=== PATIENT | male | born 1960 | race Caucasian/White ===

== ENCOUNTER 2022-08-07 22:58 | Emergency (ER) | payer MEDICARE, MEDICAID, SELFPAY ==
--- NOTE | ~2022-08-07 | CT_ITS ---
EXAMINATION: CT ABDOMEN AND PELVIS WITHOUT CONTRAST CLINICAL INFORMATION: Abdominal pain. COMPARISON: CT abdomen/pelvis 01/05/2012. TECHNIQUE: Multidetector volumetric imaging was performed from the superior aspect of the liver through the pubic symphysis. Sagittal and coronal reformatted images were obtained on the technologist's workstation. This CT examination was performed using dose optimization techniques as appropriate, variously including the following: *Automated exposure control *Adjustment of mA and/or kV according to patient size (this includes techniques or standardized protocols for targeted exams where dose is matched to indication/reason for exam; i.e. extremities or head) *Use of iterative reconstruction technique DLP: 663 mGy-cm FINDINGS: LUNG BASES: Multifocal nodularities and patchy airspace opacities with also bronchial wall thickening. LIVER, GALLBLADDER, AND BILIARY TREE: Hepatomegaly with decreased attenuation of the liver parenchyma suggesting hepatic steatosis. No discrete focal liver lesion is noted in this limited noncontrast examination. Layering hyperattenuating sludge versus bile in the gallbladder. No significant wall thickening nor pericholecystic inflammatory changes.. No biliary ductal dilatation. PANCREAS: Unremarkable. SPLEEN: Unremarkable. ADRENAL GLANDS: Unremarkable. KIDNEYS AND URETERS: A couple of Bosniak 1 water density cysts are noted in the left kidney. No nephrolithiasis or hydronephrosis. No perinephric fat stranding. BLADDER: Unremarkable. GASTROINTESTINAL TRACT: The stomach and the small bowel are nondilated. Normal appendix. Colonic diverticulosis. No pericolonic inflammatory changes or evidence of bowel obstruction. Fluid filled distended rectum which could be seen with diarrhea. ABDOMINAL WALL: Small fat-containing umbilical hernia. LYMPH NODES: No pathologically enlarged lymph nodes. VASCULAR: The infrarenal abdominal aorta measures 4.5 cm in diameter, which is increased from 3 cm on 01/05/2012. Diffuse atherosclerotic disease. PELVIC VISCERA: Prostatomegaly. OSSEOUS STRUCTURES: Degenerative changes of the spine. No acute or aggressive appearing osseous abnormalities. CT/CT abdomen pelvis wo IV con IMPRESSION: 1. Multifocal nodularities and patchy airspace opacities in the lung bases concerning for an atypical pneumonia. Recommend a short-term follow-up to ensure resolution. 2. Hepatomegaly and hepatic steatosis. 3. Colonic diverticulosis but no evidence of acute diverticulitis. 4. Fluid-filled distended rectum which could be seen with diarrhea. 5. Increased size of an infrarenal abdominal aortic aneurysm measuring up to 4.5, increased from 3 cm on 01/05/2012. Recommend vascular surgery consultation to determine further management. 6. Prostatomegaly.
--- NOTE | ~2022-08-07 | XR_ITS ---
EXAMINATION: XR CHEST CLINICAL INFORMATION: Cough, elevated WBC. COMPARISON: Chest radiograph 05/27/2019. TECHNIQUE: 2 views of the chest were obtained. FINDINGS: Normal appearance of the cardiomediastinal silhouette. New multifocal airspace opacities, more noticeable in the lateral left upper lobe. No pleural effusion. No pneumothorax. No acute osseous abnormalities. XR/XR chest 2V IMPRESSION: New multifocal airspace opacities concerning for an atypical infectious or inflammatory process. Recommend a follow-up examination after treatment to ensure adequate resolution.
[2022-08-07 23:02] VITALS: BP 80/43; PULSE 90; RESP 17; TEMP 37.3; O2SAT 95; BMI 33.0
[2022-08-07 23:20] LABS: Basophils Absolute Auto 0.1 X10*3/uL (0.0-0.2); Basophils Percent Auto 0.3 % (0-2); Eosinophils Absolute Auto 0.4 X10*3/uL (0.0-0.4); Eosinophils Percent Auto 1.4 % (0-4); Hematocrit 33.4 % (42.0-52.0); Hemoglobin 11.4 g/dl (14.0-18.0); Imm Gran Abs Auto 0.38 X10*3/uL (0.00-0.03); Imm Gran Pct Auto 1.5 % (0.0-0.4); Lymphocytes Absolute Auto 2.9 X10*3/uL (1.2-4.9); Lymphocytes Percent Auto 11.2 % (20-40); Mean Corpuscular HGB Conc 34.1 g/dl (31.0-36.0); Mean Platelet Volume 8.4 fL (9.4-12.4); Monocytes Percent Auto 7.8 % (2-11); Neutrophils Absolute Auto 20.4 x10*3/uL (2.0-8.3); Neutrophils Percent Auto 77.8 % (45-73); Platelet Count 560 X10*3/uL (160-400); Red Blood Count 3.93 X10*6/uL (4.60-5.80); Red Cell Distribution Width 13.5 % (11.0-16.0); SCAN SMEAR FLAG 1; White Blood Count 26.2 X10*3/uL (4.8-10.8)
[2022-08-07 23:22] LABS: MANUAL DIFF FLAG SCAN
[2022-08-07 23:39] LABS: B Type Natriuretic Peptide 30 pg/mL (<100)
[2022-08-07 23:41] LABS: SLIDE REVIEW VERIFIED
[2022-08-07 23:54] LABS: Alanine Aminotransferase 60 U/L (0-40); Albumin Level 3.9 g/dL (3.5-5.0); Alkaline Phosphatase 160 U/L (39-117); Anion Gap 23 (12-20); Aspartate Amino Transferase 23 U/L (5-37); Bilirubin Total 0.9 mg/dL (0.0-1.0); Blood Urea Nitrogen 74 mg/dL (9-16); Calcium 8.6 mg/dL (8.4-10.2); Carbon Dioxide 17 mmol/L (22-29); Chloride 101 mmol/L (96-108); Creatinine Clr Calc Pharmacy 36.4; Estimated Glomerular Filt Rate 28; Glucose Random 167 mg/dL (60-115); Lipase 32 U/L (8-78); Magnesium 2.5 mg/dL (1.6-2.6); Potassium 4.7 mmol/L (3.3-5.1); Sodium 136 mmol/L (135-145); Total Protein 7.7 g/dL (6.5-8.0)
[2022-08-07 23:57] LABS: Influenza A PCR NEGATIVE (Negative); Influenza B PCR NEGATIVE (Negative); Resp Syncy Virus RNA Qual PCR NEGATIVE (Negative); SARS COV2 PCR INHOUSE NEGATIVE (Negative)
[2022-08-08 00:20] VITALS: BP 88/42; PULSE 86; RESP 18; TEMP 36.7; O2SAT 96
--- NOTE | 2022-08-08 00:41 | ED_ITS ---
HPI - Abdominal Pain General Chief Complaint: Abdominal Pain Stated Complaint: Abd pain/Cough/Congested Time Seen by Provider: 08/07/22 23:54 Source: patient History of Present Illness HPI narrative: 62-year-old male with abdominal pain and a cough for several weeks. Patient states the abdominal pain is epigastric, nonradiating, and intermittent. Does seem to go away with [place], but this relief is temporary. The patient also states that he has had an intermittent cough for approximately the same duration. The cough is dry and nonproductive. Both symptoms are not worsening and not improving. MD elicited complaint: abdominal pain Pertinent past history: none Onset (ago): week(s) Pain Consistency: intermittent Severity: moderate Quality: fullness and dull Radiation: none Exacerbating factors: nothing Relieving factors: medication Associated symptoms: denies other symptoms Related Data Allergies Allergy/AdvReac Type Severity Reaction Status Date / Time doxycycline [Doxycycline] Allergy Unknown RASH Unverified 08/03/21 13:39 latex [Latex] Allergy Unknown RASH Unverified 08/03/21 13:39 Latex Gloves Allergy Unknown Uncoded 08/03/21 13:39 Review of Systems Constitutional: Denies chills, Denies fever(s) and Reports poor appetite Eyes: Reports no additional eye complaints Reports system reviewed and no additional complaints, except as documented Cardiovascular: Denies chest pain, Denies edema and Denies dyspnea Respiratory: Denies chest congestion, Reports cough and Denies dyspnea Gastrointestinal: Reports as per HPI Genitourinary: Reports no additional male genitourinary complaints and Denies difficulty urinating Musculoskeletal: Reports no additional musculoskeletal complaints Reports system reviewed and no additional complaints, except as documented and Denies Abnormal speech present [facility] Past Medical History Attestation statement: The following information was validated with the patient. [facility] Narrative: Nonsmoker nondrinker. Past medical history includes congestive heart failure Social History Social History Advance Directives: No Physical Exam ED Vital Signs: Vital Signs - 24 hr 08/07/22 23:02 08/08/22 00:20 Temperature 99.1 F 98.0 F Pulse Rate 90 86 Respiratory Rate 17 18 Blood Pressure 80/43 L 88/42 L Pulse Oximetry 95 96 Oxygen Delivery Method Room Air Room Air BMI result Body Mass Index 33.0 Patient's blood pressure noted to be significantly low, although the patient is asymptomatic Const General: cooperative, healthy appearing and acute distress mild Nutritional Appearance: average body habitus Orientation/consciousness: patient oriented x3 HENMT Head: Yes normal to inspection, Yes normocephalic and Yes atraumatic Ears: hearing grossly normal bilaterally and external ears normal General nose exam: Normal external nose present Face and sinus: Yes normal facial exam Mouth: Normal oral and palatal mucosa present Eyes Conjunctivae: conjunctivae normal Sclerae: sclerae normal Neck Neck: Yes normal visual inspection and Yes full ROM Resp Effort & Inspection: normal respiratory effort and able to speak in complete sentences Cardio Rate: regular rate Rhythm: regular rhythm GI Inspection: Yes normal to inspection Palpation (GI): nontender Percussion: Yes normal to percussion, No dullness to percussion and Yes tympanic to percussion General: Yes no CVA tenderness Back/Spine/Pelvis Back: no CVA tenderness Cervical Spine: normal cervical lordosis and cervical ROM normal Skin General skin exam: no rashes or lesions noted Neuro General: patient oriented x3 Cranial nerves: Yes CN's II-XII intact bilaterally Speech: No Abnormal speech present Extrem General: Yes normal to inspection and Yes full ROM Medications Administered Discontinued Medications Generic Name Dose Route Start Last Admin Trade Name Freq PRN Reason Stop Dose Admin Ceftriaxone Sodium 1 gm/ 50 mls @ 100 mls/hr 08/08/22 01:19 08/08/22 01:43 Sodium Chloride IV 08/08/22 01:48 100 mls/hr ONCE ONE Administration Lorazepam 2 mg 08/08/22 01:22 08/08/22 01:43 Lorazepam 1 Mg Tablet PO 08/08/22 01:23 2 mg ONCE ONE Administration MDM - Abdominal Pain MDM Narrative Medical decision making narrative: 62-year-old male with a past medical history of congestive heart failure presents to the emergency department today with a cough and question of a stomach infection. The patient was noted to be afebrile on arrival. The patient had a CT scan of the abdomen which did not show any significant abnormalities, but a chest x-ray did show bilateral pulmonary infiltrates, consistent with pneumonia. COVID test pending at this time. Laboratory studies reviewed below. The patient was given Rocephin and Zithromax after having blood cultures, and will be admitted to the hospital for additional management. Medical Records Attestation: I reviewed the patient's medical records. Lab Data Attestation: I reviewed the patient's lab results. Lab results narrative: WBC elevated at 26.2. Creatinine also elevated at 2.39 (unknown if this is new). Result diagrams: 08/07/22 23:15 08/07/22 23:15 Labs: Lab Results 08/07/22 08/07/22 08/07/22 Range/Units 23:15 23:15 23:15 WBC 26.2 H (4.8-10.8) X10*3/uL RBC 3.93 L (4.60-5.80) X10*6/uL Hgb 11.4 L (14.0-18.0) g/dl Hct 33.4 L (42.0-52.0) % MCV 85.0 (80.0-98.0) fL MCH 29.0 (27.0-33.0) pg MCHC 34.1 (31.0-36.0) g/dl RDW 13.5 (11.0-16.0) % Plt Count 560 H (160-400) X10*3/uL MPV 8.4 L (9.4-12.4) fL Immature Gran % (Auto) 1.5 H (0.0-0.4) % Neut % (Auto) 77.8 H (45-73) % Lymph % (Auto) 11.2 L (20-40) % Adams % (Auto) 7.8 (2-11) % Eos % (Auto) 1.4 (0-4) % Baso % (Auto) 0.3 (0-2) % Lymph # (Auto) 2.9 (1.2-4.9) X10*3/uL Adams # (Auto) 2.0 H (0.1-1.2) X10*3/uL Eos # (Auto) 0.4 (0.0-0.4) X10*3/uL Baso # (Auto) 0.1 (0.0-0.2) X10*3/uL Abs Immat Gran (auto) 0.38 H (0.00-0.03) X10*3/uL Absolute Neuts (auto) 20.4 H (2.0-8.3) x10*3/uL Absolute Nucleated RBC 0.000 (0.0-0.012) X10*3/uL Nucleated RBC % (auto) 0.0 (0.0-0.2) /100WBC Smear Tech's Comments VERIFIED Sodium 136 (135-145) mmol/L Potassium 4.7 (3.3-5.1) mmol/L Chloride 101 (96-108) mmol/L Carbon Dioxide 17 L (22-29) mmol/L Anion Gap 23 H (12-20) BUN 74 H (9-16) mg/dL Creatinine 2.39 H (0.5-1.4) mg/dL Estim Creat Clear Calc 36.4 Estimated GFR 28 Random Glucose 167 H (60-115) mg/dL Calcium 8.6 (8.4-10.2) mg/dL Magnesium 2.5 (1.6-2.6) mg/dL Total Bilirubin 0.9 (0.0-1.0) mg/dL AST 23 (5-37) U/L ALT 60 H (0-40) U/L Alkaline Phosphatase 160 H (39-117) U/L B-Natriuretic Peptide 30 (<100) pg/mL Total Protein 7.7 (6.5-8.0) g/dL Albumin 3.9 (3.5-5.0) g/dL Lipase 32 (8-78) U/L Influenza Type A (PCR) (Negative) Influenza Type B (PCR) (Negative) RSV RNA Qual (PCR) (Negative) SARS-CoV-2 RNA (RT-PCR) (Negative) 08/07/22 Range/Units 23:15 WBC (4.8-10.8) X10*3/uL RBC (4.60-5.80) X10*6/uL Hgb (14.0-18.0) g/dl Hct (42.0-52.0) % MCV (80.0-98.0) fL MCH (27.0-33.0) pg MCHC (31.0-36.0) g/dl RDW (11.0-16.0) % Plt Count (160-400) X10*3/uL MPV (9.4-12.4) fL Immature Gran % (Auto) (0.0-0.4) % Neut % (Auto) (45-73) % Lymph % (Auto) (20-40) % Adams % (Auto) (2-11) % Eos % (Auto) (0-4) % Baso % (Auto) (0-2) % Lymph # (Auto) (1.2-4.9) X10*3/uL Adams # (Auto) (0.1-1.2) X10*3/uL Eos # (Auto) (0.0-0.4) X10*3/uL Baso # (Auto) (0.0-0.2) X10*3/uL Abs Immat Gran (auto) (0.00-0.03) X10*3/uL Absolute Neuts (auto) (2.0-8.3) x10*3/uL Absolute Nucleated RBC (0.0-0.012) X10*3/uL Nucleated RBC % (auto) (0.0-0.2) /100WBC Smear Tech's Comments Sodium (135-145) mmol/L Potassium (3.3-5.1) mmol/L Chloride (96-108) mmol/L Carbon Dioxide (22-29) mmol/L Anion Gap (12-20) BUN (9-16) mg/dL Creatinine (0.5-1.4) mg/dL Estim Creat Clear Calc Estimated GFR Random Glucose (60-115) mg/dL Calcium (8.4-10.2) mg/dL Magnesium (1.6-2.6) mg/dL Total Bilirubin (0.0-1.0) mg/dL AST (5-37) U/L ALT (0-40) U/L Alkaline Phosphatase (39-117) U/L B-Natriuretic Peptide (<100) pg/mL Total Protein (6.5-8.0) g/dL Albumin (3.5-5.0) g/dL Lipase (8-78) U/L Influenza Type A (PCR) NEGATIVE (Negative) Influenza Type B (PCR) NEGATIVE (Negative) RSV RNA Qual (PCR) NEGATIVE (Negative) SARS-CoV-2 RNA (RT-PCR) NEGATIVE (Negative) Imaging Data Chest x-ray: Attestation: I personally reviewed and interpreted this imaging study as follows: My impression: Bilateral pneumonia Radiologist's impression: Same CT scan - abdomen: My impression: No acute findings on CT except for the previously seen infiltrates on chest x- ray Discharge Plan Discharge Clinical Impression: Pneumonia, Abdominal pain, Cough Patient Disposition: Admitted As Inpatient
[2022-08-08] MEDS: LORazepam 1 MG TABLET 2 MG PO (01:43)
[2022-08-08] MEDS: cefTRIAXone sodium 1 GM in 0.9 % Sodium Chloride 50 ML IV (01:43)
[2022-08-08] MEDS: Azithromycin 500 MG in 0.9 % Sodium Chloride 250 ML 125 MG IV (02:28)
--- NOTE | 2022-08-08 03:37 | PM.EVENT ---
Event Note Date of Service: 08/08/22 Event Note: Was asked to evaluate the patient for admission by Dr. Oswald. Patient here with cough with imaging concerning for an infiltrate. Patient stated he would not like to be admitted and wants to leave against medical advice. States he understands the risk of leaving including worsening of his pneumonia, worsening of his kidney function and . Counselled regarding medications for his congestive heart failure and antibiotics for pneumonia. Talked to Dr. Dang regarding patient's wishes of leaving against medical advice. Defer outpatient Abx and AMA paperwork to Dr Dang. Recommend repeat blood work in 2-3 days
[2022-08-08 03:45] VITALS: BP 101/53; PULSE 93; RESP 13; TEMP 36.6; O2SAT 95
--- NOTE | 2022-08-08 04:13 | PC.NURSE ---
Pt leaving AMA. Discharge instruction reviewed with pt. Pt verbalizes understanding and signed AMA forms.
[2022-08-08] MEDS: Azithromycin 250 MG TABLET PO (04:23)
== END 2022-08-08 04:49 | disposition left against medical advice (07) ==
PROVIDERS: Emergency Provider Emergency Medicine; PCP Physician Assistant
DX: J18.9 Pneumonia, unspecified organism (principal); R10.9 Unspecified abdominal pain; Z20.822 Contact with and (suspected) exposure to COVID-19
CPT/HCPCS: 0241U; 36415; 71046; 74176; 80053; 83690; 83735; 83880; 85025; 87040; 92950; 96365; 96367; 99284; J0456; J0696

== ENCOUNTER 2022-08-08 17:58 | Emergency (ER) | payer MEDICARE, MEDICAID, SELFPAY ==
--- NOTE | 2022-08-08 18:06 | ED.GENADULT ---
HPI - General Adult General Chief complaint: Dyspnea Stated complaint: asthma, heart failure Related Data Home Medications Medication Instructions Recorded Confirmed carvedilol 25 mg tablet 1 tab PO BID 08/08/22 sacubitril 97 mg-valsartan 103 mg 1 tab PO BID 08/08/22 tablet (Entresto) spironolactone 25 mg tablet 1 tab PO DAILY 08/08/22 Previous Rx's Medication Instructions Recorded levofloxacin 750 mg tablet 750 mg PO DAILY 7 days #7 tabs 08/08/22 Allergies Allergy/AdvReac Type Severity Reaction Status Date / Time doxycycline [Doxycycline] Allergy Unknown RASH Unverified 08/03/21 13:39 latex [Latex] Allergy Unknown RASH Unverified 08/03/21 13:39 Latex Gloves Allergy Unknown Uncoded 08/03/21 13:39 Course Course Course Narrative: Triage: -c/o [place] , sob -sob started yesterday, was here, pt left becasue needed to take her daughter home -yesterday DR. Quezada attempted to admit pt , dx Pneumonia, taking levofloxacin -no CP -PE: well appearing, no SOB , O2 95% -F/u labs Discharge Plan Discharge Prescriptions: No Action levofloxacin 750 mg tablet 750 mg PO DAILY 7 Days Qty: 7 0RF carvedilol 25 mg tablet 1 tab PO BID spironolactone 25 mg tablet 1 tab PO DAILY Entresto 97-103 mg tablet 1 tab PO BID
[2022-08-08 18:07] VITALS: BP 101/55; PULSE 97; RESP 18; TEMP 36.6; O2SAT 92; BMI 30.2
== END 2022-08-08 22:01 | disposition left against medical advice (07) ==
PROVIDERS: Emergency Provider Emergency Medicine
DX: J18.9 Pneumonia, unspecified organism (principal); R06.02 Shortness of breath; J45.909 Unspecified asthma, uncomplicated
CPT/HCPCS: 0241U; 36415; 71046; 74176; 80053; 83690; 83735; 83880; 85025; 87040; 92950; 96365; 96367; 99281; 99284; J0456; J0696

== ENCOUNTER 2022-08-09 12:39 | Emergency (ER) | payer MEDICARE, MEDICAID, SELFPAY | END 2022-08-09 16:36 | disposition left against medical advice (07) | PROVIDERS: Emergency Provider Emergency Medicine; PCP Physician Assistant | DX: J18.9 Pneumonia, unspecified organism (principal) ==

== ENCOUNTER 2022-08-09 21:00 | Inpatient (IN) | payer MEDICARE, MEDICAID, SELFPAY ==
--- NOTE | 2022-08-09 | ECG_ITS ---
Test Reason : GENERAL MEDICAL Blood Pressure : / mmHG Vent. Rate : 087 BPM Atrial Rate : 087 BPM P-R Int : 166 ms QRS Dur : 174 ms QT Int : 402 ms P-R-T Axes : 053 -29 095 degrees QTc Int : 483 ms Normal sinus rhythm Left bundle branch block Abnormal ECG When compared with ECG of 27-MAY-2019 14:28, Left bundle branch block is now Present Minimal criteria for Septal infarct are no longer Present Referred By: Generic ED Physician Electronically Signed By:MALCOLM SOSA MD
--- NOTE | ~2022-08-09 | CT_ITS ---
EXAMINATION: CT CHEST WITHOUT CONTRAST CLINICAL INFORMATION: Bilateral pneumonia COMPARISON: Chest radiograph yesterday TECHNIQUE: Multidetector volumetric CT imaging of the chest was done. Axial MIP volume rendering provided. Sagittal and coronal reformatted images were obtained. This CT examination was performed using dose optimization techniques as appropriate, variously including the following: *Automated exposure control *Adjustment of mA and/or kV according to patient size (this includes techniques or standardized protocols for targeted exams where dose is matched to indication/reason for exam; i.e. extremities or head) *Use of iterative reconstruction technique DLP: 361 mGy-cm FINDINGS: LUNGS: Multifocal areas of pneumonia are seen. There is dense consolidation in the peripheral left upper lobe abutting the major fissure with some areas of pneumatocele formation within the infiltrate. Other areas of peribronchial groundglass inflammatory changes are seen throughout all other lobes some of which have [id number]-type densities. For example see right upper lobe (5:241), right lower lobe (5:379), left upper lobe (5:209) and lingula (5:389) MEDIASTINUM: Multiple prominent mediastinal lymph nodes are seen the largest in the AP window measuring 1.2 cm in short axis dimension, all probably reactive secondary to the multifocal CORONARY ARTERY CALCIFICATION: Present PLEURA: There is no pleural effusion. No pleural mass or thickening. AXILLA: No lymphadenopathy. UPPER ABDOMEN: Hepatic steatosis is present OSSEOUS STRUCTURES: Some minimal degenerative changes are present in the spine. There is a sclerotic lesion present in the superoposterior endplate of T6 unchanged from 2018. CT/CT chest wo IV con IMPRESSION: 1. Multifocal pneumonia as described above. 2. Incidental note made of hepatic steatosis and a stable sclerotic lesion in T6. Fleischner guidelines were followed.
[2022-08-09 21:18] VITALS: BP 88/52; PULSE 94; RESP 18; O2SAT 94; BMI 29.9
[2022-08-09 21:31] VITALS: TEMP 36.8
--- NOTE | 2022-08-09 21:43 | ED_ITS ---
HPI - General Adult General Chief complaint: General Medical Stated complaint: Weakness/Dizziness Time Seen by Provider: 08/09/22 21:42 Source: patient and old records reviewed Mode of arrival: ambulatory Limitations: no limitations History of Present Illness HPI narrative: 62-year-old male with history of cardiomyopathy/cardiomegaly on Entresto, carvedilol and spironolactone, AAA who presents to the ER for evaluation of weakness and dizziness. He was recently seen here yesterday for abdominal pain and cough. X-ray showed bilateral pulmonary infiltrates consistent with pneumonia. He had a white count of 26.2K and JAYLEEN. Admission was recommended but he ended up leaving AMA. He was sent home with Levaquin prescription. Patient comes back to the ER with ongoing cough, shortness of breath and not feeling well. He states he feels weak and dizzy. He has had nausea and decreased p.o. intake. He feels dehydrated. He denies any chest pain. He reports a productive cough of green, thick phlegm. He states he started feeling unwell about 3 weeks ago when he was traveling to [place]. He is not vaccinated for COVID or the flu. No one else at home is ill. MD complaint: weakness, dizziness Onset (ago): week(s) (3) Location: head and chest Radiation: non-radiation Severity: moderate Quality: aching Pain Consistency: constant Relieving factors: rest Exacerbating factors: movement Associated symptoms: cough, headaches, loss of appetite, malaise, n ausea/vomiting, shortness of breath and weakness Treatments prior to arrival: none Related Data Home Medications Medication Instructions Recorded Confirmed carvedilol 25 mg tablet 1 tab PO BID 08/08/22 sacubitril 97 mg-valsartan 103 mg 1 tab PO BID 08/08/22 tablet (Entresto) spironolactone 25 mg tablet 1 tab PO DAILY 08/08/22 Previous Rx's Medication Instructions Recorded levofloxacin 750 mg tablet 750 mg PO DAILY 7 days #7 tabs 08/08/22 Allergies Allergy/AdvReac Type Severity Reaction Status Date / Time doxycycline [Doxycycline] Allergy Unknown RASH Unverified 08/03/21 13:39 latex [Latex] Allergy Unknown RASH Unverified 08/03/21 13:39 Latex Gloves Allergy Unknown Uncoded 08/03/21 13:39 Review of Systems Review of Systems: Constitutional: No Fever, No Chills ENT/Mouth: No sore throat, No Rhinorrhea, No Swallowing Difficulty Eyes: No Eye Pain, No Swelling, No Redness Cardiovascular: No Chest Pain,+ SOB, No Orthopnea, No Edema Respiratory: + Cough, +Sputum, No Wheezing, + dyspnea Gastrointestinal: No Nausea, No Vomiting, No Diarrhea, No abdominal Pain, No Hematochezia, No Melena Genitourinary: No Dysuria, No Urinary Frequency, No Hematuria Musculoskeletal: No joint pain, + Myalgias Skin: No Skin Lesions, No rash Neuro: + Weakness, No Numbness, +Dizziness, + Headache Psych: + Anxiety/Panic, No Depression Heme/Lymph: No Bruising, No Lymphadenopathy Endocrine: No Polyuria, No Polydipsia PMFSH Social History Social History Advance Directives: No Advance Directives Information Provided: No Physical Exam ED Vital Signs: Vital Signs - 24 hr 08/09/22 21:18 08/09/22 21:31 08/09/22 23:43 Temperature 98.3 F 100.0 F Pulse Rate 94 87 Respiratory Rate 18 20 Blood Pressure 88/52 L 97/55 L Pulse Oximetry 94 97 Oxygen Delivery Method Room Air Room Air BMI result Body Mass Index 29.9 Appearance: Alert. Oriented X3. No acute distress. Eyes: Pupils equal, round and reactive to light. ENT: Pharynx normal. Neck: Normal inspection. Neck supple. CVS: Normal heart rate and rhythm. Pulses normal. Respiratory: No respiratory distress. Breath sounds decreased throughout, no appreciated rales, rhonchi or wheezes. Abdomen: Soft and nontender. +BS x4 no palpable mass. Skin: Skin warm and dry. Normal skin color. Normal skin turgor. No rashes. Extremities: No lower extremity edema. Lower extremities are warm and well perfused. Neuro: Oriented X 3. No motor deficit. No sensory deficit. Course Course Course Narrative: 62-year-old male with a history of CHF, cardiomyopathy unknown ejection fraction who presents to the ER for evaluation not feeling well including weakness, dizziness, shortness of breath and productive cough. Diagnosed with pneumonia and JAYLEEN yesterday, left AMA with prescription for Levaquin. Patient arrives to the ER with soft blood pressure, 88/51. No fever. SpO2 94% on room air. He is able to speaking complete sentences and is in no respiratory distress. Will repeat labs and get dry CT of his chest to further evaluate his bilateral pneumonia. X-ray was reviewed, there appears to be a dense left upper lobe. CT will help differentiate this. Will start treatment for community-acquired pneumonia with azithromycin and Rocephin. Will gently hydrate. He does not appear to be in acute CHF. His BNP yesterday was normal. He has no peripheral edema or evidence of volume overload. JAYLEEN most likely prerenal due to dehydration and acute illness. Cardiac records from [facility] pending. Reevaluation(s) Reevaluation #1: Cardiac records from [facility] have been reviewed. Left heart catheterization and right heart catheterization in 2018 showed nonobstructive CAD, normal right and left-sided filling pressures, normal pulmonary artery pressures. Echo in 09/2018 showed EF of 10-15%, unknown etiology. He had improvement in his ejection fraction on cardiac MRI 12/2018, EF 26% with severely reduced global LV function, moderately dilated LV. February/2021 he had normalization and full recovery of his cardiac function with LVEF 55-65%, normal RV systolic function. Reevaluation #2: Patient is SIRS positive with HR >90, WBC 25K and documented PNA --> sepsis criteria has been met, but not severe sepsis. Lactic acid is normal. Initial BP 88/50 but repeat is 107/55 while getting 1st liter IVF. Will plan to admit for IV abx, IVF. He has not had documented to low blood pressures, and his lactic acid is 1.0. Will hold off on the 30 cc/kilos sepsis bolus for now. BP improving with 1 L of fluids, reassess need for additional IVF resuscitation. Reevaluation #3: BP 97/55 with MAP 69. 2nd liter ordered. Hospitalist to admit. Medications Administered Generic Name Dose Route Start Last Admin Trade Name Freq PRN Reason Stop Dose Admin Sodium Chloride 1,000 mls @ 999 mls/hr 08/10/22 00:15 08/10/22 00:36 Ns IVCONT 08/10/22 01:15 999 mls/hr .Q1H1M MILLA Administration Discontinued Medications Generic Name Dose Route Start Last Admin Trade Name Freq PRN Reason Stop Dose Admin Ceftriaxone Sodium 1 gm/ 50 mls @ 100 mls/hr 08/09/22 21:58 08/10/22 00:07 Sodium Chloride IV 08/09/22 22:27 Infused ONCE ONE Infusion Azithromycin 500 mg/ Sodium 250 mls @ 125 mls/hr 08/09/22 21:58 08/09/22 23:36 Chloride IV 08/09/22 23:57 125 mls/hr ONCE ONE Administration Sodium Chloride 1,000 mls @ 999 mls/hr 08/09/22 22:00 08/10/22 00:08 Ns IVCONT 08/09/22 23:00 Infused .Q1H1M MILLA Infusion Medical Decision Making Lab Data Result diagrams: 08/09/22 22:10 08/09/22 22:10 Labs: Lab Results 08/09/22 08/09/22 08/09/22 Range/Units 22:10 22:10 22:10 WBC 25.5 H (4.8-10.8) X10*3/uL RBC 3.89 L (4.60-5.80) X10*6/uL Hgb 11.1 L (14.0-18.0) g/dl Hct 33.5 L (42.0-52.0) % MCV 86.1 (80.0-98.0) fL MCH 28.5 (27.0-33.0) pg MCHC 33.1 (31.0-36.0) g/dl RDW 13.7 (11.0-16.0) % Plt Count 618 H (160-400) X10*3/uL MPV 8.4 L (9.4-12.4) fL Immature Gran % (Auto) 1.0 H (0.0-0.4) % Neut % (Auto) 79.8 H (45-73) % Lymph % (Auto) 10.6 L (20-40) % [place] % (Auto) 7.0 (2-11) % Eos % (Auto) 1.3 (0-4) % Baso % (Auto) 0.3 (0-2) % Lymph # (Auto) 2.7 (1.2-4.9) X10*3/uL [place] # (Auto) 1.8 H (0.1-1.2) X10*3/uL Eos # (Auto) 0.3 (0.0-0.4) X10*3/uL Baso # (Auto) 0.1 (0.0-0.2) X10*3/uL Abs Immat Gran (auto) 0.26 H (0.00-0.03) X10*3/uL Absolute Neuts (auto) 20.3 H (2.0-8.3) x10*3/uL Absolute Nucleated RBC 0.000 (0.0-0.012) X10*3/uL Nucleated RBC % (auto) 0.0 (0.0-0.2) /100WBC Smear Tech's Comments VERIFIED ESR (0-15) MM/HR VBG pH (7.32-7.43) VBG pCO2 mmHg VBG pO2 mmHg VBG HCO3 (22-26) mmol/L VBG O2 Saturation % VBG Base Excess mmol/L Sodium 134 L (135-145) mmol/L Potassium 5.4 H (3.3-5.1) mmol/L Chloride 100 (96-108) mmol/L Carbon Dioxide 18 L (22-29) mmol/L Anion Gap 21 H (12-20) BUN 52 H (9-16) mg/dL Creatinine 1.41 H (0.5-1.4) mg/dL Estim Creat Clear Calc 58.9 Estimated GFR 51 Random Glucose 123 H (60-115) mg/dL Lactic Acid 1.0 (0.5-2.0) mmol/L Calcium 9.0 (8.4-10.2) mg/dL Total Bilirubin 1.2 H (0.0-1.0) mg/dL Direct Bilirubin 0.6 H (0.0-0.5) mg/dL AST 56 H (5-37) U/L ALT 107 H (0-40) U/L Alkaline Phosphatase 249 H D (39-117) U/L C-Reactive Protein 30.37 H (< or = 0.50) mg/dL B-Natriuretic Peptide (<100) pg/mL Total Protein 8.1 H (6.5-8.0) g/dL Albumin 3.8 (3.5-5.0) g/dL Procalcitonin ng/mL COVID-19 (ROB) (Negative) COVID-19 Clin Com 11/15/22 11/15/22 11/15/22 Range/Units 22:10 22:10 22:14 WBC (4.8-10.8) X10*3/uL RBC (4.60-5.80) X10*6/uL Hgb (14.0-18.0) g/dl Hct (42.0-52.0) % MCV (80.0-98.0) fL MCH (27.0-33.0) pg MCHC (31.0-36.0) g/dl RDW (11.0-16.0) % Plt Count (160-400) X10*3/uL MPV (9.4-12.4) fL Immature Gran % (Auto) (0.0-0.4) % Neut % (Auto) (45-73) % Lymph % (Auto) (20-40) % [place] % (Auto) (2-11) % Eos % (Auto) (0-4) % Baso % (Auto) (0-2) % Lymph # (Auto) (1.2-4.9) X10*3/uL [place] # (Auto) (0.1-1.2) X10*3/uL Eos # (Auto) (0.0-0.4) X10*3/uL Baso # (Auto) (0.0-0.2) X10*3/uL Abs Immat Gran (auto) (0.00-0.03) X10*3/uL Absolute Neuts (auto) (2.0-8.3) x10*3/uL Absolute Nucleated RBC (0.0-0.012) X10*3/uL Nucleated RBC % (auto) (0.0-0.2) /100WBC Smear Tech's Comments ESR (0-15) MM/HR VBG pH 7.42 (7.32-7.43) VBG pCO2 29 mmHg VBG pO2 36 mmHg VBG HCO3 19 L (22-26) mmol/L VBG O2 Saturation 50.0 % VBG Base Excess -4.1 mmol/L Sodium (135-145) mmol/L Potassium (3.3-5.1) mmol/L Chloride (96-108) mmol/L Carbon Dioxide (22-29) mmol/L Anion Gap (12-20) BUN (9-16) mg/dL Creatinine (0.5-1.4) mg/dL Estim Creat Clear Calc Estimated GFR Random Glucose (60-115) mg/dL Lactic Acid (0.5-2.0) mmol/L Calcium (8.4-10.2) mg/dL Total Bilirubin (0.0-1.0) mg/dL Direct Bilirubin (0.0-0.5) mg/dL AST (5-37) U/L ALT (0-40) U/L Alkaline Phosphatase (39-117) U/L C-Reactive Protein (< or = 0.50) mg/dL B-Natriuretic Peptide 40 (<100) pg/mL Total Protein (6.5-8.0) g/dL Albumin (3.5-5.0) g/dL Procalcitonin 0.19 ng/mL COVID-19 (ROB) (Negative) COVID-19 Clin Com 08/09/22 08/10/22 Range/Units 22:34 22:10 WBC (4.8-10.8) X10*3/uL RBC (4.60-5.80) X10*6/uL Hgb (14.0-18.0) g/dl Hct (42.0-52.0) % MCV (80.0-98.0) fL MCH (27.0-33.0) pg MCHC (31.0-36.0) g/dl RDW (11.0-16.0) % Plt Count (160-400) X10*3/uL MPV (9.4-12.4) fL Immature Gran % (Auto) (0.0-0.4) % Neut % (Auto) (45-73) % Lymph % (Auto) (20-40) % [place] % (Auto) (2-11) % Eos % (Auto) (0-4) % Baso % (Auto) (0-2) % Lymph # (Auto) (1.2-4.9) X10*3/uL [place] # (Auto) (0.1-1.2) X10*3/uL Eos # (Auto) (0.0-0.4) X10*3/uL Baso # (Auto) (0.0-0.2) X10*3/uL Abs Immat Gran (auto) (0.00-0.03) X10*3/uL Absolute Neuts (auto) (2.0-8.3) x10*3/uL Absolute Nucleated RBC (0.0-0.012) X10*3/uL Nucleated RBC % (auto) (0.0-0.2) /100WBC Smear Tech's Comments ESR 98 H (0-15) MM/HR VBG pH (7.32-7.43) VBG pCO2 mmHg VBG pO2 mmHg VBG HCO3 (22-26) mmol/L VBG O2 Saturation % VBG Base Excess mmol/L Sodium (135-145) mmol/L Potassium (3.3-5.1) mmol/L Chloride (96-108) mmol/L Carbon Dioxide (22-29) mmol/L Anion Gap (12-20) BUN (9-16) mg/dL Creatinine (0.5-1.4) mg/dL Estim Creat Clear Calc Estimated GFR Random Glucose (60-115) mg/dL Lactic Acid (0.5-2.0) mmol/L Calcium (8.4-10.2) mg/dL Total Bilirubin (0.0-1.0) mg/dL Direct Bilirubin (0.0-0.5) mg/dL AST (5-37) U/L ALT (0-40) U/L Alkaline Phosphatase (39-117) U/L C-Reactive Protein (< or = 0.50) mg/dL B-Natriuretic Peptide (<100) pg/mL Total Protein (6.5-8.0) g/dL Albumin (3.5-5.0) g/dL Procalcitonin ng/mL COVID-19 (ROB) Negative (Negative) COVID-19 Clin Com See Note ECG Data Attestation: I personally reviewed and interpreted this ECG as follows: Prior ECG tracings: available for review Interpretation: Sinus rhythm, ventricular rate 87 beats per minute, left bundle branch block, normal AK interval, normal QTC. Left bundle branch block is new from 2019 Critical Care Time Critical Care Time Critical Care Time: Yes Total Critical Care Time: 35 Attestation: I have personally provided critical care time exclusive of time spent on separately billable procedures. Time includes review of lab data, radiology results, discussion with consultants, and monitoring for potential decompensation. Intervention performed as documented. Discharge Plan Discharge Clinical Impression: Community acquired pneumonia, JAYLEEN (acute kidney injury), Sepsis Patient Disposition: Admitted As Inpatient
--- NOTE | 2022-08-09 22:01 | PC.NURSE ---
Called [facility] at 2200 for medical records on patient per Bisi LANGSTON.
[2022-08-09 22:18] LABS: Basophils Absolute Auto 0.1 X10*3/uL (0.0-0.2); Basophils Percent Auto 0.3 % (0-2); Eosinophils Absolute Auto 0.3 X10*3/uL (0.0-0.4); Eosinophils Percent Auto 1.3 % (0-4); Hematocrit 33.5 % (42.0-52.0); Hemoglobin 11.1 g/dl (14.0-18.0); Imm Gran Abs Auto 0.26 X10*3/uL (0.00-0.03); Lymphocytes Absolute Auto 2.7 X10*3/uL (1.2-4.9); Lymphocytes Percent Auto 10.6 % (20-40); MANUAL DIFF FLAG SCAN; Mean Corpuscular HGB Conc 33.1 g/dl (31.0-36.0); Mean Corpuscular Hemoglobin 28.5 pg (27.0-33.0); Mean Corpuscular Volume 86.1 fL (80.0-98.0); Mean Platelet Volume 8.4 fL (9.4-12.4); Monocytes Absolute Auto 1.8 X10*3/uL (0.1-1.2); Neutrophils Absolute Auto 20.3 x10*3/uL (2.0-8.3); Neutrophils Percent Auto 79.8 % (45-73); Platelet Count 618 X10*3/uL (160-400); Red Blood Count 3.89 X10*6/uL (4.60-5.80); Red Cell Distribution Width 13.7 % (11.0-16.0); SCAN SMEAR FLAG 1; White Blood Count 25.5 X10*3/uL (4.8-10.8)
[2022-08-09 22:19] LABS: VBG Base Excess -4.1 mmol/L; VBG HCO3 19 mmol/L (22-26); VBG pCO2 29 mmHg; VBG pH 7.42 (7.32-7.43); VBG pO2 36 mmHg
[2022-08-09 22:19] LABS: Venous Blood Gas Refer to POC result
[2022-08-09 22:44] LABS: B Type Natriuretic Peptide 40 pg/mL (<100)
[2022-08-09 22:51] LABS: Alanine Aminotransferase 107 U/L (0-40); Albumin Level 3.8 g/dL (3.5-5.0); Alkaline Phosphatase 249 U/L (39-117); Anion Gap 21 (12-20); Aspartate Amino Transferase 56 U/L (5-37); Bilirubin Direct 0.6 mg/dL (0.0-0.5); Bilirubin Total 1.2 mg/dL (0.0-1.0); Blood Urea Nitrogen 52 mg/dL (9-16); Carbon Dioxide 18 mmol/L (22-29); Chloride 100 mmol/L (96-108); Creatinine Clr Calc Pharmacy 58.9; Estimated Glomerular Filt Rate 51; Glucose Random 123 mg/dL (60-115); Potassium 5.4 mmol/L (3.3-5.1); Sodium 134 mmol/L (135-145); Total Protein 8.1 g/dL (6.5-8.0)
[2022-08-09 22:58] LABS: Procalcitonin 0.19 ng/mL
[2022-08-09] MEDS: cefTRIAXone sodium 1 GM in 0.9 % Sodium Chloride 50 ML IV (23:00)
[2022-08-09] MEDS: 0.9 % Sodium Chloride 1,000 ML 999 ML IVCONT (23:00)
[2022-08-09 23:08] LABS: SLIDE REVIEW VERIFIED
[2022-08-09 23:08] LABS: COVID-19 Test Negative (Negative)
[2022-08-09] MEDS: Azithromycin 500 MG in 0.9 % Sodium Chloride 250 ML 125 MG IV (23:36)
[2022-08-09 23:43] VITALS: BP 97/55; PULSE 87; RESP 20; TEMP 37.8; O2SAT 97
[2022-08-10] VITALS (7 sets, daily range): BP systolic 84–110; BP diastolic 50–66; PULSE 80–90; RESP 14–18; TEMP 36.5–36.9; O2SAT 96–97
[2022-08-10 00:28] LABS: C Reactive Protein 30.37 mg/dL (< or = 0.50)
[2022-08-10] MEDS: 0.9 % Sodium Chloride 1,000 ML 999 ML IVCONT (00:36)
[2022-08-10 00:49] LABS: Erythrocyte Sedimentation Rate 98 MM/HR (0-15)
--- NOTE | 2022-08-10 00:58 | P.HPHOSP_ITS ---
History of Present Illness Date of Service: 08/10/22 Chief Complaint: SOB 62-year-old male with past medical history of congestive heart failure presents to the hospital with complaints of shortness of breath. Patient reports that he was in [facility] about 4 weeks ago, has symptoms, he was seen in hospital at [facility] a an given antibiotics, but did not improve. His symptoms have continued to worsen, he has cough, sputum production, he reports feeling chills, denies any chest pain, no abdominal pain nausea or vomiting, no diarrhea constipation, no urinary symptoms and no lower extremity edema. No orthopnea or PND. Of note patient was seen in the ED on 08/07 and left against medical advice On arrival to the ED patient hemodynamically stable with soft blood pressure of 88/52. Patient received 1 L fluid with improvement his blood pressure. Labs are significant for WBC count of 25.5, hemoglobin of 11.1, hematocrit of 33.5, ESR of 98, sodium 134, potassium 5.4, creatinine of 1.14 with a baseline of around 0.87, total bili of 1.2, AST of 56, ALT of 107, alk-phos of 249, CRP of 30.[address] shows multifocal pneumonia, hepatic steatosis and a stable sclerotic lesion in T6 Review of Systems Review of Systems: Yes all other systems are reviewed and are negative [facility] Medical History (Updated 08/10/22 @ 06:34 by Kennedy Ambriz MD) History of congestive heart failure Family History (Updated 08/10/22 @ 06:32 by Kennedy Ambriz MD) Other No family history of coronary artery disease Surgical History (Updated 08/10/22 @ 06:32 by Kennedy Ambriz MD) History of hernia repair Social History (Updated 08/10/22 @ 06:33 by Kennedy Ambriz MD) Alcohol intake: current Alcohol intake frequency: does not drink Patient Tobacco Use Status: Former Tobacco user Use of substances other than those prescribed or required for medical reasons: No Advance Directives: No Advance Directives Information Provided: No Meds Allergies Allergy/AdvReac Type Severity Reaction Status Date / Time doxycycline [Doxycycline] Allergy Unknown RASH Unverified 08/03/21 13:39 latex [Latex] Allergy Unknown RASH Unverified 08/03/21 13:39 Latex Gloves Allergy Unknown Uncoded 08/03/21 13:39 Active Medications: Current Medications Sodium Chloride (Ns) 1,000 mls @ 999 mls/hr IVCONT .Q1H1M MILLA Stop: 08/10/22 01:15 Last Admin: 08/10/22 00:36 Dose: 999 mls/hr Pharmacy Consult (Consult Rx Perform Med Rec) 1 each MISCELLANE ONCE PRN PRN Reason: Consult order Home Medications Medication Instructions Recorded Confirmed Last Taken Type carvedilol 25 mg tablet 1 tab PO BID 08/08/22 08/10/22 Unknown History sacubitril 97 mg-valsartan 103 mg 1 tab PO BID 08/08/22 08/10/22 Unknown History tablet (Entresto) spironolactone 25 mg tablet 1 tab PO DAILY 08/08/22 08/10/22 Unknown History Physical Exam Vital Signs and Narrative: Vital Signs: Last Vital Signs Temp 100.0 F 08/09/22 23:43 Pulse 87 08/09/22 23:43 Resp 20 08/09/22 23:43 BP 97/55 L 08/09/22 23:43 Pulse Ox 97 08/09/22 23:43 O2 Del Method 08/09/22 23:43 BMI result Body Mass Index 29.9 Results Labs CBC and Chem 7: 08/09/22 22:10 08/09/22 22:10 Labs: Laboratory Results - last 24 hr 08/09/22 08/09/22 08/09/22 22:10 22:10 22:10 MCV 86.1 MCH 28.5 MCHC 33.1 RDW 13.7 Plt Count 618 H MPV 8.4 L Immature Gran % (Auto) 1.0 H Neut % (Auto) 79.8 H Lymph % (Auto) 10.6 L [place] % (Auto) 7.0 Eos % (Auto) 1.3 Baso % (Auto) 0.3 Lymph # (Auto) 2.7 [place] # (Auto) 1.8 H Eos # (Auto) 0.3 Baso # (Auto) 0.1 Abs Immat Gran (auto) 0.26 H Absolute Neuts (auto) 20.3 H Absolute Nucleated RBC 0.000 Nucleated RBC % (auto) 0.0 Smear Tech's Comments VERIFIED ESR VBG pH VBG pCO2 VBG pO2 VBG HCO3 VBG O2 Saturation VBG Base Excess Anion Gap 21 H Estim Creat Clear Calc 58.9 Estimated GFR 51 Random Glucose 123 H Lactic Acid 1.0 Calcium 9.0 Total Bilirubin 1.2 H Direct Bilirubin 0.6 H AST 56 H ALT 107 H Alkaline Phosphatase 249 H D C-Reactive Protein 30.37 H B-Natriuretic Peptide Total Protein 8.1 H Albumin 3.8 Procalcitonin COVID-19 (ROB) COVID-19 [place] Com 08/09/22 08/09/22 08/09/22 22:10 22:10 22:14 MCV MCH MCHC RDW Plt Count MPV Immature Gran % (Auto) Neut % (Auto) Lymph % (Auto) [place] % (Auto) Eos % (Auto) Baso % (Auto) Lymph # (Auto) [place] # (Auto) Eos # (Auto) Baso # (Auto) Abs Immat Gran (auto) Absolute Neuts (auto) Absolute Nucleated RBC Nucleated RBC % (auto) Smear Tech's Comments ESR VBG pH 7.42 VBG pCO2 29 VBG pO2 36 VBG HCO3 19 L VBG O2 Saturation 50.0 VBG Base Excess -4.1 Anion Gap Estim Creat Clear Calc Estimated GFR Random Glucose Lactic Acid Calcium Total Bilirubin Direct Bilirubin AST ALT Alkaline Phosphatase C-Reactive Protein B-Natriuretic Peptide 40 Total Protein Albumin Procalcitonin 0.19 COVID-19 (ROB) COVID-19 Cinemagram 08/09/22 08/10/22 22:34 22:10 MCV MCH MCHC RDW Plt Count MPV Immature Gran % (Auto) Neut % (Auto) Lymph % (Auto) [place] % (Auto) Eos % (Auto) Baso % (Auto) Lymph # (Auto) [place] # (Auto) Eos # (Auto) Baso # (Auto) Abs Immat Gran (auto) Absolute Neuts (auto) Absolute Nucleated RBC Nucleated RBC % (auto) Smear Tech's Comments ESR 98 H VBG pH VBG pCO2 VBG pO2 VBG HCO3 VBG O2 Saturation VBG Base Excess Anion Gap Estim Creat Clear Calc Estimated GFR Random Glucose Lactic Acid Calcium Total Bilirubin Direct Bilirubin AST ALT Alkaline Phosphatase C-Reactive Protein B-Natriuretic Peptide Total Protein Albumin Procalcitonin COVID-19 (ROB) Negative COVID-19 Clin Com See Note Imaging Radiologist's Impressions: Impressions Chest CT 08/09/22 23:00 IMPRESSION: 1. Multifocal pneumonia as described above. 2. Incidental note made of hepatic steatosis and a stable sclerotic lesion in T6. Fleischner guidelines were followed. Assessment and Plan (1) Community acquired pneumonia: Status: Acute (2) JAYLEEN (acute kidney injury): Status: Acute (3) Sepsis: Status: Acute (4) Transaminitis: Status: Acute Plan 62-year-old male with past medical history of CHF presents the hospital with complaints shortness of breath found to have pneumonia # sepsis - secondary to pneumonia - has leukocytosis, hypotensive - no lactic acidosis, afebrile - will treat with IV fluids, IV antibiotics - follow cultures # community-acquired pneumonia - will treat with IV antibiotics - follow cultures - monitor respiratory status # JAYLEEN - likely prerenal due to acute infection - treat with IV fluids - follow BMP # transaminitis - has slightly elevated LFTs from recent admission 11 13 - possibly secondary to pneumonia, sepsis/hypertension - IV fluids - follow LFTs # CHF - not in exacerbation - continue home medications DVT prophylaxis: Lovenox Given failed outpatient therapy, and sepsis requiring IV antibiotics patient will be admitted and will require minimal to inpatient hospital stay for further management Quality Stroke Does the patient have a stroke diagnosis?: No VTE Prior VTE?: No VTE Risk Level:: Medical - moderate - high VTE Device Contraindication: Treatment Not Indicated VTE Drug Contraindication: N/A - Med Ordered
--- NOTE | 2022-08-10 01:36 | PC.NURSE ---
patient sleeping, resp are equal and unlabored. IVF running. call egan within reach. able to make needs known. will continue to round..
[2022-08-10] MEDS: 0.9 % Sodium Chloride 1,000 ML 100 ML IVCONT ×2 (02:44→13:28)
--- NOTE | 2022-08-10 06:44 | PC.NURSE ---
pt ambulated to and from restroom independently
[2022-08-10 07:05] LABS: MANUAL DIFF FLAG NO
[2022-08-10 07:10] LABS: Basophils Absolute Auto 0.1 X10*3/uL (0.0-0.2); Basophils Percent Auto 0.2 % (0-2); Eosinophils Absolute Auto 0.3 X10*3/uL (0.0-0.4); Eosinophils Percent Auto 1.6 % (0-4); Hematocrit 30.5 % (42.0-52.0); Hemoglobin 10.1 g/dl (14.0-18.0); Imm Gran Abs Auto 0.26 X10*3/uL (0.00-0.03); Imm Gran Pct Auto 1.3 % (0.0-0.4); Lymphocytes Absolute Auto 2.2 X10*3/uL (1.2-4.9); Lymphocytes Percent Auto 11.1 % (20-40); Mean Corpuscular HGB Conc 33.1 g/dl (31.0-36.0); Mean Corpuscular Hemoglobin 28.7 pg (27.0-33.0); Mean Corpuscular Volume 86.6 fL (80.0-98.0); Mean Platelet Volume 8.6 fL (9.4-12.4); Monocytes Absolute Auto 1.3 X10*3/uL (0.1-1.2); Monocytes Percent Auto 6.6 % (2-11); Neutrophils Percent Auto 79.2 % (45-73); Platelet Count 571 X10*3/uL (160-400); Red Blood Count 3.52 X10*6/uL (4.60-5.80); Red Cell Distribution Width 13.7 % (11.0-16.0); White Blood Count 20.2 X10*3/uL (4.8-10.8)
[2022-08-10 07:47] LABS: Anion Gap 16 (12-20); Blood Urea Nitrogen 38 mg/dL (9-16); Calcium 8.1 mg/dL (8.4-10.2); Carbon Dioxide 17 mmol/L (22-29); Chloride 107 mmol/L (96-108); Estimated Glomerular Filt Rate > 60; Glucose Random 172 mg/dL (60-115); Potassium 4.6 mmol/L (3.3-5.1); Sodium 135 mmol/L (135-145)
[2022-08-10] MEDS: carvediloL 25 MG TABLET PO ×2 (09:51→20:11)
[2022-08-10] MEDS: Spironolactone 25 MG TABLET PO (09:51)
[2022-08-10] MEDS: Sacubitril/Valsartan 97/103 1 TAB TABLET PO (10:08)
--- NOTE | 2022-08-10 12:50 | P.EN_ITS ---
Event Note Date of Service: 08/10/22 Event Note: 62-year-old admitted to [facility] with a diagnosis of shortness of breath with past medical history of congestive heart failure presents to the hospital with complaints of shortness of breath.? Patient reports that he was in [place] about 4 weeks ago, has symptoms, he was seen in hospital at [facility] given antibiotics, but did not improve.? His symptoms have continued to worsen, he has cough, sputum production, he reports feeling chills, denies any chest pain, no abdominal pain nausea or vomiting, no diarrhea constipation, no urinary symptoms and no lower extremity edema.? No orthopnea or PND. Of note patient was seen in the ED on 08/07 and left against medical advice On arrival to the ED patient hemodynamically stable with soft blood pressure of 88/52.? Patient received 1 L fluid with improvement his blood pressure.? Labs are significant for WBC count of 25.5, hemoglobin of 11.1, hematocrit of 33.5, ESR of 98, sodium 134, potassium 5.4, creatinine of 1.14 with a baseline of around 0.87, total bili of 1.2, AST of 56, ALT of 107, alk-phos of 249, CRP of 30.[address] shows multifocal pneumonia, hepatic steatosis and a stable sclerotic lesion in T6 on examination today patient awake alert feeling better denies shortness of breath, less cough A/P 62-year-old male with past medical history of CHF presents the hospital with complaints shortness of breath found to have pneumonia # sepsis secondary to pneumonia - leukocytosis, hypotensive, no lactic acidosis, afebrile - will treat with IV fluids, IV antibiotics - follow cultures, monitor respiratory status # JAYLEEN likely prerenal due to acute infection, creatinine normalized will DC IV fluids # transaminitis - has slightly elevated LFTs from recent admission - possibly secondary to pneumonia, sepsis/hypertension, follow LFTs avoid hepatotoxins # CHF - not in exacerbation, continue home medications DVT prophylaxis:? Lovenox Given failed outpatient therapy, and sepsis requiring IV antibiotics patient will be admitted and will require minimal to inpatient hospital stay for further management
--- NOTE | 2022-08-10 13:39 | MHC.CM.PN ---
IMM DELIVERED CM MET WITH PT. LIVES WITH OTHERS SPORADICALLY BUT IS ESSENTIALLY HOMELESS. DOES NOT LIKE SHELTERS. NO DME OR SERVICES. NO HCP BUT WILLING TO FILL ONE OUT WHILE HERE. NO COVID VAX. PCP KARIE COSTA IN [facility]. DP: [facility] WILL TRANSPORT AT [place]
[2022-08-10] MEDS: Acetaminophen 325 MG TABLET 650 MG PO (14:07)
[2022-08-10] MEDS: cefTRIAXone sodium 1 GM in 0.9 % Sodium Chloride 50 ML IV (20:08)
[2022-08-10] MEDS: Enoxaparin Sodium 40 MG/0.4 ML SYRINGE SUBCUT (20:09)
[2022-08-10] MEDS: Azithromycin 500 MG in 0.9 % Sodium Chloride 250 ML 125 MG IV (21:58)
[2022-08-11] MEDS: 0.9 % Sodium Chloride Flush 3 ML SYRINGE IVFLUSH ×3 (00:10→22:11)
[2022-08-11] MEDS: guaiFENesin DM 100/10/5 ML 5 ML SYRUP PO ×2 (00:30→12:32)
[2022-08-11 04:00] VITALS: RESP 18
[2022-08-11 07:27] VITALS: BP 113/59; PULSE 85; RESP 17; TEMP 37.3; O2SAT 93
[2022-08-11 11:14] VITALS: BP 102/57; PULSE 85; RESP 17; TEMP 37.4; O2SAT 94
[2022-08-11 12:13] LABS: Hemoglobin 10.6 g/dl (14.0-18.0); Mean Corpuscular HGB Conc 33.1 g/dl (31.0-36.0); Mean Corpuscular Hemoglobin 28.8 pg (27.0-33.0); Mean Platelet Volume 8.2 fL (9.4-12.4); Platelet Count 580 X10*3/uL (160-400); Red Blood Count 3.68 X10*6/uL (4.60-5.80); Red Cell Distribution Width 13.5 % (11.0-16.0); White Blood Count 17.6 X10*3/uL (4.8-10.8)
[2022-08-11] MEDS: Acetaminophen 325 MG TABLET 650 MG PO (12:24)
[2022-08-11] MEDS: Spironolactone 25 MG TABLET PO (12:32)
[2022-08-11] MEDS: carvediloL 25 MG TABLET PO (12:33)
[2022-08-11] MEDS: Sacubitril/Valsartan 97/103 1 TAB TABLET PO (12:33)
[2022-08-11 13:24] LABS: Alanine Aminotransferase 157 U/L (0-40); Albumin Level 3.2 g/dL (3.5-5.0); Alkaline Phosphatase 245 U/L (39-117); Anion Gap 15 (12-20); Aspartate Amino Transferase 46 U/L (5-37); Bilirubin Direct 0.5 mg/dL (0.0-0.5); Bilirubin Total 0.7 mg/dL (0.0-1.0); Blood Urea Nitrogen 17 mg/dL (9-16); Calcium 8.5 mg/dL (8.4-10.2); Carbon Dioxide 15 mmol/L (22-29); Chloride 111 mmol/L (96-108); Creatinine Clr Calc Pharmacy 90.4; Estimated Glomerular Filt Rate > 60; Glucose Random 126 mg/dL (60-115); Potassium 4.8 mmol/L (3.3-5.1); Sodium 136 mmol/L (135-145); Total Protein 6.8 g/dL (6.5-8.0)
--- NOTE | 2022-08-11 15:06 | HO.PM.IMPN ---
Subjective Subjective Date of Service: 08/11/22 Interval History: feeling better than yesterday, less shortness of breath and cough, noted to have low-grade fevers, no chills, tolerating diet, with no nausea, no vomiting, no diarrhea, no lightheadedness, or dizziness, no acute issues overnight. Review of Systems Review of Systems: Yes all other systems are reviewed and are negative Physical Exam Vital Signs: Vital Signs: Last Vital Signs Temp 99.4 F 08/11/22 11:14 Pulse 85 08/11/22 11:14 Resp 17 08/11/22 11:14 BP 102/57 L 08/11/22 11:14 Pulse Ox 94 08/11/22 11:14 O2 Del Method 08/11/22 11:14 BMI result Body Mass Index 29.9 Const: Other: General awake alert x3,in no acute distress. Neck no JVD. CVS regular rate rhythm, Respiratory lungs is scattered rhonchi no use of accessory muscles Gastrointestinal abdomen soft, nontender, bowel sounds audible, no guarding , no rigidity. Extremities no edema Neuro nonfocal patient moving all 4 extremity speech clear. Skin no rash psych appropriate affect Objective Data Active Medications Acetaminophen (Acetaminophen 325 Mg Tablet) 650 mg PO Q6H PRN PRN Reason: Pain, Mild (Pain Scale 1-3) Last Admin: 08/11/22 12:24 Dose: 650 mg Documented By: XAVI Carvedilol (Carvedilol 25 Mg Tablet) 25 mg PO BID [facility]; Protocol Last Admin: 08/11/22 12:33 Dose: 25 mg Documented By: XAVI Docusate Sodium (Docusate Sodium 100 Mg Capsule) 100 mg PO DAILY PRN PRN Reason: Constipation Enoxaparin Sodium (Enoxaparin Sodium 40 Mg/0.4 Ml Syringe) 40 mg SUBCUT BEDTIME [facility] Last Admin: 08/10/22 20:09 Dose: 40 mg Documented By: JAMARI Guaifenesin/Dextromethorphan (Guaifenesin Dm 100/10/5 Ml 5 Ml Syrup) 5 ml PO Q4H PRN PRN Reason: Cough Last Admin: 08/11/22 12:32 Dose: 5 ml Documented By: XAVI Ceftriaxone Sodium 1 gm/ (Sodium Chloride) 50 mls @ 100 mls/hr IV Q24H [facility] Last Infusion: 08/10/22 20:43 Dose: 0 mls/hr Documented By: JAMARI Azithromycin 500 mg/ Sodium (Chloride) 250 mls @ 125 mls/hr IV Q24H [facility] Last Infusion: 08/11/22 00:10 Dose: 0 mls/hr Documented By: TATUM Ondansetron HCl (Ondansetron Hcl 4 Mg/2 Ml Vial) 4 mg IVPUSH Q8H PRN PRN Reason: Nausea and Vomiting Pharmacy Consult (Consult Rx Perform Med Rec) 1 each MISCELLANE ONCE PRN PRN Reason: Consult order Sacubitril/Valsartan (Sacubitril/Valsartan 97/103 1 Tab Tablet) 1 tab PO BID [facility]; Protocol Last Admin: 08/11/22 12:33 Dose: 1 tab Documented By: XAVI Sodium Chloride (0.9 % Sodium Chloride Flush 3 Ml Syringe) 3 ml IVFLUSH QSHIFT [facility] Last Admin: 08/11/22 10:02 Dose: 3 ml Documented By: XAVI Spironolactone (Spironolactone 25 Mg Tablet) 25 mg PO DAILY [facility]; Protocol Last Admin: 08/11/22 12:32 Dose: 25 mg Documented By: XAVI Labs CBC & Chem 7: 08/11/22 12:05 08/11/22 11:52 Labs: Laboratory Results - last 24 hr 08/11/22 08/11/22 11:52 12:05 MCV 87.0 MCH 28.8 MCHC 33.1 RDW 13.5 Plt Count 580 H MPV 8.2 L Absolute Nucleated RBC 0.000 Nucleated RBC % (auto) 0.0 Anion Gap 15 Estim Creat Clear Calc 90.4 Estimated GFR > 60 Random Glucose 126 H Calcium 8.5 Total Bilirubin 0.7 Direct Bilirubin 0.5 AST 46 H ALT 157 H Alkaline Phosphatase 245 H Total Protein 6.8 Albumin 3.2 L Microbiology Microbiology Results: Microbiology 08/09/22 22:34 Blood Culture - Preliminary Blood - Venous No growth after 24 hours. 08/09/22 22:10 Blood Culture - Preliminary Blood - Venous No growth after 24 hours. Assessment and Plan (1) Transaminitis: Status: Acute (2) Community acquired pneumonia: Status: Acute (3) JAYLEEN (acute kidney injury): Status: Acute (4) Sepsis: Status: Acute Plan 62-year-old male with past medical history of CHF presents the hospital with complaints shortness of breath found to have pneumonia # sepsis secondary to pneumonia -? leukocytosis, hypotensive, no lactic acidosis, afebrile - continue IV ceftriaxone and Zosyn day 2 - blood cultures negative , follow CBC, clinical course, continue symptomatic treatment # JAYLEEN likely prerenal due to acute infection, creatinine normalized status post IV fluids # transaminitis - has slightly elevated LFTs from recent admission - possibly secondary to pneumonia, sepsis, CT abdomen and pelvis showed hepatomegaly and hepatic steatosis, no evidence of passive congestion repeat LFTs showed persistent elevation since patient asymptomatic recommend outpatient workup # chronic CHF with reduced EF - not in exacerbation, continue home medications Entresto, Aldactone and Coreg, had soft blood pressure readings now improved DVT prophylaxis:? Lovenox Given failed outpatient therapy, and sepsis requiring IV antibiotics Will continue inpatient hospitalization Quality Stroke Does the patient have a stroke diagnosis?: No VTE Prior VTE?: No VTE Risk Level:: Medical - moderate - high VTE Device Contraindication: Treatment Not Indicated VTE Drug Contraindication: N/A - Med Ordered
[2022-08-11 16:00] VITALS: BP 93/51; PULSE 80; RESP 18; TEMP 36.7; O2SAT 96
[2022-08-11 19:35] VITALS: BP 104/57; PULSE 84; RESP 18; TEMP 36.8; O2SAT 97
[2022-08-11] MEDS: cefTRIAXone sodium 1 GM in 0.9 % Sodium Chloride 50 ML IV (22:10)
[2022-08-11] MEDS: Azithromycin 500 MG in 0.9 % Sodium Chloride 250 ML 125 MG IV (22:10)
--- NOTE | 2022-08-12 00:09 | PC.NURSE ---
Addendum entered by Brenda Sullivan RN 08/12/22 00:11: Patient refusing 0000 vitals at this time as well. Original Note: Patient yelling, swearing, stating he wants this damn IV out, its burning . Patient refusing new iv insertion at this time. Patient states, i will wait until the morning for another IV, now don't bother me again tonight. Refusing vitals at 0400.
[2022-08-12 07:52] VITALS: BP 110/59; PULSE 90; RESP 17; TEMP 37.7; O2SAT 94
[2022-08-12 09:26] LABS: Hematocrit 32.1 % (42.0-52.0); Hemoglobin 10.5 g/dl (14.0-18.0); Mean Corpuscular HGB Conc 32.7 g/dl (31.0-36.0); Mean Corpuscular Hemoglobin 28.4 pg (27.0-33.0); Mean Corpuscular Volume 86.8 fL (80.0-98.0); Mean Platelet Volume 8.1 fL (9.4-12.4); Platelet Count 597 X10*3/uL (160-400); Red Cell Distribution Width 13.4 % (11.0-16.0); White Blood Count 15.3 X10*3/uL (4.8-10.8)
[2022-08-12 10:02] LABS: Alanine Aminotransferase 146 U/L (0-40); Alkaline Phosphatase 250 U/L (39-117); Anion Gap 18 (12-20); Aspartate Amino Transferase 47 U/L (5-37); Bilirubin Direct 0.4 mg/dL (0.0-0.5); Bilirubin Total 0.5 mg/dL (0.0-1.0); Blood Urea Nitrogen 13 mg/dL (9-16); Calcium 8.6 mg/dL (8.4-10.2); Carbon Dioxide 15 mmol/L (22-29); Chloride 109 mmol/L (96-108); Creatinine Clr Calc Pharmacy 102.6; Estimated Glomerular Filt Rate > 60; Glucose Random 140 mg/dL (60-115); Potassium 4.6 mmol/L (3.3-5.1); Sodium 137 mmol/L (135-145)
[2022-08-12] MEDS: Azithromycin 500 MG TABLET PO (10:50)
[2022-08-12 10:58] LABS: Albumin Level 3.3 g/dL (3.5-5.0)
--- NOTE | 2022-08-12 11:23 | PM.DS ---
DS: Providers Provider Date of Service: 08/12/22 Date of admission: 08/10/22 00:56 Primary care physician: Tonie Sheehan PA-C DS: Diagnosis Discharge Diagnosis (1) Transaminitis: Status: Acute (2) Community acquired pneumonia: Status: Acute (3) JAYLEEN (acute kidney injury): Status: Acute (4) Sepsis: Status: Acute DS: Summary Hospital Course Hospital Course: Date of Service: 08/10/22 Chief Complaint: SOB 62-year-old male with past medical history of congestive heart failure presents to the hospital with complaints of shortness of breath.? Patient reports that he was in [place] about 4 weeks ago, has symptoms, he was seen in hospital at [place] an given antibiotics, but did not improve.? His symptoms have continued to worsen, he has cough, sputum production, he reports feeling chills, denies any chest pain, no abdominal pain nausea or vomiting, no diarrhea constipation, no urinary symptoms and no lower extremity edema.? No orthopnea or PND. Of note patient was seen in the ED on 08/07 and left against medical advice On arrival to the ED patient hemodynamically stable with soft blood pressure of 88/52.? Patient received 1 L fluid with improvement his blood pressure.? Labs are significant for WBC count of 25.5, hemoglobin of 11.1, hematocrit of 33.5, ESR of 98, sodium 134, potassium 5.4, creatinine of 1.14 with a baseline of around 0.87, total bili of 1.2, AST of 56, ALT of 107, alk-phos of 249, CRP of 30.[address] shows multifocal pneumonia, hepatic steatosis and a stable sclerotic lesion in T6 History of presenting illness 62-year-old male with past medical history of CHF presents the hospital with complaints shortness of breath found to have pneumonia. # sepsis secondary to pneumonia patient admitted to medical floor treated with IV ceftriaxone and Zosyn, blood cultures x2 negative times 48 hours WBC improved, patient is chronic hypertension due to underlying history of chronic heart failure with reduced EF and on multiple antihypertensive medication patient blood pressure is soft but stable, he remained afebrile, since patient has significantly improved with no shortness of breath and stable oxygenation he is being discharged home to finish a total 7 day course of antibiotic. # JAYLEEN likely prerenal due to acute infection, creatinine normalized? status post IV fluids # transaminitis Noted to have elevated LFTs, CT abdomen and pelvis showed hepatomegaly and hepatic steatosis, patient remained asymptomatic recommend close outpatient follow-up, repeat LFTs remains unchanged # chronic CHF with reduced EF - not in exacerbation, continue home medications Entresto, Aldactone and Coreg, noted to have soft blood pressures patient remains asymptomatic Time Spent with Patient Time attestation: Total time spent providing and/or coordinating discharge services: Discharge coordination time: Greater than 30 minutes Quality: Safe Use of Opioids Does Pt have an Active Cancer Diagnosis on the Problem List?: No Quality: Stroke Does the patient have a stroke diagnosis?: No Physical Exam Vital Signs: Vital Signs: Last Vital Signs Temp 99.8 F 08/12/22 07:52 Pulse 90 08/12/22 07:52 Resp 17 08/12/22 07:52 BP 110/59 L 08/12/22 07:52 Pulse Ox 94 08/12/22 07:52 O2 Del Method 08/12/22 07:52 BMI result Body Mass Index 29.9 Const: Other: General? awake alert x3,in no acute distress.? Neck no JVD. CVS? regular rate rhythm, Respiratory lungs? is scattered rhonchi no use of accessory muscles Gastrointestinal abdomen soft, nontender, bowel sounds audible, no guarding , no rigidity. Extremities no? edema Neuro nonfocal patient moving all 4 extremity speech clear. Skin no rash psych appropriate affect DS: Data Data Completed and Pending Labs on day of discharge: Laboratory Results - last 24 hr 08/11/22 08/11/22 08/12/22 11:52 12:05 09:18 WBC 17.6 H RBC 3.68 L Hgb 10.6 L Hct 32.0 L MCV 87.0 MCH 28.8 MCHC 33.1 RDW 13.5 Plt Count 580 H MPV 8.2 L Absolute Nucleated RBC 0.000 Nucleated RBC % (auto) 0.0 Sodium 136 137 Potassium 4.8 4.6 Chloride 111 H 109 H Carbon Dioxide 15 L 15 L Anion Gap 15 18 BUN 17 H 13 D Creatinine 0.92 0.81 Estim Creat Clear Calc 90.4 102.6 Estimated GFR > 60 > 60 Random Glucose 126 H 140 H Calcium 8.5 8.6 Total Bilirubin 0.7 0.5 Direct Bilirubin 0.5 0.4 AST 46 H 47 H ALT 157 H 146 H Alkaline Phosphatase 245 H 250 H Total Protein 6.8 7.0 Albumin 3.2 L 3.3 L 08/12/22 09:18 WBC 15.3 H RBC 3.70 L Hgb 10.5 L Hct 32.1 L MCV 86.8 MCH 28.4 MCHC 32.7 RDW 13.4 Plt Count 597 H MPV 8.1 L Absolute Nucleated RBC 0.000 Nucleated RBC % (auto) 0.0 Sodium Potassium Chloride Carbon Dioxide Anion Gap BUN Creatinine Estim Creat Clear Calc Estimated GFR Random Glucose Calcium Total Bilirubin Direct Bilirubin AST ALT Alkaline Phosphatase Total Protein Albumin Preliminary micro results at discharge 08/09/22 22:34 Blood Culture - Preliminary Blood - Venous No growth after 48 hours. 08/09/22 22:10 Blood Culture - Preliminary Blood - Venous No growth after 48 hours. Discharge Plan Discharge Anticipated Discharge Date/Time: 08/12/22 11:18 Patient Disposition: Home, Self-Care Discharge Diagnosis: sepsis due to pneumonia JAYLEEN transaminitis Referrals: Tonie Sheehan PA-C [Primary Care Provider] - 1 Week Discharge Medications: New cefuroxime axetil 500 mg Tablet 500 mg PO Q12H Qty: 10 0RF azithromycin 500 mg Tablet 500 mg PO Q24H Qty: 3 0RF Continued carvedilol 25 mg tablet 1 tab PO BID spironolactone 25 mg tablet 1 tab PO DAILY Entresto 97-103 mg tablet 1 tab PO BID Discontinued levofloxacin 750 mg tablet 750 mg PO DAILY 7 Days Qty: 7 0RF Discharge Orders: Discharge Order (Routine); Ordered 08/12/22 Ordered By: Sergo Hamm Diet: Low fat, low cholesterol Activity on Discharge: As tolerated Stand Alone Forms: Patient Portal Discharge page Care Plan Goals: take all home medications as before take Ceftin 500 mg twice daily for 5 more days, and take azithromycin once daily for 3 days take cough medication as needed/rest return to check with worsening shortness of breath, fever chills or any new symptoms. Health Concerns: congestive heart failure with reduced EF take home medications Plan of Treatment: outpatient follow-up with primary care physician and Cardiology Assessment: as above
--- NOTE | 2022-08-12 12:17 | MHC.CM.PN ---
PT DISCHARGED HOME NO SERVICES W/ ARRANGING TRANSPORT
== END 2022-08-12 12:00 | disposition home or self-care (01) | DRG 871 ==
LOC: HO.ED 22:11 → HO.EDOVER 08-10 01:01 → HO.S3 08-10 18:36
PROVIDERS: Physician Assistant; Admitting Provider Internal Medicine; Emergency Provider Internal Medicine; PCP Physician Assistant; Visit Provider Hospitalist
DX: A41.9 Sepsis, unspecified organism (principal); J18.9 Pneumonia, unspecified organism; N17.9 Acute kidney failure, unspecified; I50.22 Chronic systolic (congestive) heart failure; K76.0 Fatty (change of) liver, not elsewhere classified; Z20.822 Contact with and (suspected) exposure to COVID-19; Z91.040 Latex allergy status; Z88.1 Allergy status to other antibiotic agents; Z79.899 Other long term (current) drug therapy
CPT/HCPCS: 0241U; 36415; 71046; 71250; 74176; 80048; 80053; 80076; 82803; 83605; 83690; 83735; 83880; 84145; 85025; 85027; 85652; 86140; 87040; 87635; 92950; 93005; 96365; 96367; 99281; 99284; 99285; J0456; J0696; J1650

== ENCOUNTER 2023-03-10 07:34 | Outpatient (REF) | payer MEDICARE, MEDICAID, SELFPAY | END 2023-03-10 07:35 | disposition home or self-care (01) | LOC: HO.HOSX 07:34 | PROVIDERS: Visit Provider Physician Assistant | DX: Z13.89 Encounter for screening for other disorder (principal) ==

== ENCOUNTER 2024-01-02 13:31 | Outpatient (AMB) | payer MEDICARE, MEDICAID, SELFPAY ==
--- NOTE | 2024-01-02 13:36 | A.OFFVIS_ITS ---
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 Pt states he will get lower stomach burning sensations randomly. Pt states he did have nausea for a day about a month ago. 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 He actually reports that he had been seen by a doct or at [facility] in at the time had reported that there was some sort of procedure that was scheduled. Was unhappy with the doctor at that time and canceled the procedure. His last CT scan was back in July of 2022. At the current time he is asymptomatic from this. He now presents to us for vascular evaluation [facility] Medical History History of congestive heart failure Surgical History History of hernia repair Family History Other No family history of coronary artery disease Social History Household Members: Spouse Housing: Apartment Do you presently have visiting nurse or other home services: No Alcohol intake: current Alcohol intake frequency: does not drink Patient Tobacco Use Status: Former Tobacco user service: No Current occupational status: disabled Review of Systems Const All systems reviewed & are unremarkable except as noted in HPI and below Reports no additional complaints ENT Reports Normal hearing present Card Denies chest pain, Denies chest pain at rest, Denies chest pain with activity and Denies pedal edema Resp Denies cough GI Denies abdominal pain Musc Denies abnormal gait, Denies muscle cramps and Denies radiating pain into limb Skin/Breast Denies skin ulcer and Denies wounds Neuro Reports Normal hearing present and Denies abnormal gait Psych Reports no additional complaints Physical Exam Const General: cooperative, healthy appearing and comfortable Orientation/consciousness: oriented to person, oriented to place and oriented to time HEENT Head: Yes normal to inspection Neck Neck: Yes normal visual inspection Carotids: no bruits Chest Chest palpation & inspection: normal inspection of the chest Resp Effort & Inspection: normal respiratory effort and able to speak in complete sentences Auscultation: clear to auscultation bilaterally, no crackles, no rales, no rhonchi and no wheezes Cardio Rate: regular rate Rhythm: regular rhythm Heart sounds: S1 normal heart sound present and S2 normal heart sound present Bruits: no carotid bruits Peripheral pulses: Peripheral pulses 2+ throughout GI Inspection: Yes normal to inspection Skin Wounds: no wounds Hair: normal Neuro General: oriented to person, oriented to place and oriented to time Cranial nerves: Yes CN's II-XII intact bilaterally and Yes Normal hearing present Cognition (Neuro): normal cognition Motor exam (neuro): 5/5 motor strength present throughout Extrem Other: venous exam: No significant superficial varicosities or spider telangiectasias, minimal edema General: No clubbing, No cyanosis and No edema Psych Appearance: grossly normal Mental Status: mental status grossly normal Speech and movement: Normal speech and movement present Results Reviewed Results Reviewed: 08/08/2022 abdominal aortic aneurysm measuring 4.5 cm. Assessment & Plan Assessment & Plan (1) AAA (abdominal aortic aneurysm) without rupture: Code(s): I71.40 - Abdominal aortic aneurysm, without rupture, unspecified Qualifiers: Abdominal aorta location: infrarenal aorta Qualified Code(s): I71.43 - Infrarenal abdominal aortic aneurysm, without rupture Plan: In short patient has radiologic evidence of a AAA on CT dated 08/08/2022. We have discussed the pathophysiology of aortic aneurysms and the risk of ruptures. We have discussed rupture risk based on size. In addition we have discussed conservative measures and risk factor modification for prevention of increase in size of the aneurysm. the patient is scheduled for aortic ultrasound to evaluate the current size of the aneurysm. He will follow up with us after testing. Thank you for allowing us to participate in the care of this patient Orders: Orders US abdominal aortic aneurysm 1 Week I71.43 - Infrarenal abdominal aortic aneurysm, without rupture Medications: Discontinued cefuroxime axetil Discontinued Reason: Patient no longer taking 500 mg PO Q12H 10 tabs 0RF azithromycin Discontinued Reason: Patient no longer taking 500 mg PO Q24H 3 tabs 0RF Coding Level of Care Code New Pt Level 4 (17876) Diagnoses Infrarenal abdominal aortic aneurysm (AAA) without rupture I71.43 Abdominal aorta location: infrarenal aorta
== END 2024-01-02 14:01 | disposition home or self-care (01) ==
PROVIDERS: PCP Physician Assistant; Visit Provider Surgery Vascular Surgery
DX: I71.43 Infrarenal abdominal aortic aneurysm, without rupture (principal)
CPT/HCPCS: 99204

== ENCOUNTER → 2024-01-02 13:31 | Outpatient (BNVA) | payer MEDICARE, MEDICAID, SELFPAY | PROVIDERS: PCP Physician Assistant; Visit Provider Surgery Vascular Surgery | DX: I71.43 Infrarenal abdominal aortic aneurysm, without rupture (principal) | CPT/HCPCS: 99202 ==

== ENCOUNTER 2024-01-18 07:51 | Outpatient (REF) | payer MEDICARE, MEDICAID, SELFPAY ==
--- NOTE | ~2024-01-18 | US_ITS ---
EXAMINATION: US RETROPERITONEAL LIMITED (AORTA) CLINICAL INFORMATION: Infrarenal abdominal aortic aneurysm without rupture. COMPARISON: CT from 08/08/2022 TECHNIQUE: Centeno-scale, color Doppler and spectral Doppler evaluation of the abdominal aorta. FINDINGS: There is a fusiform infrarenal abdominal aortic aneurysm. The measurements of the aorta in maximum AP and transverse dimensions respectively are as follows: Proximal: 2.9 x 2.9 cm. Mid: 2.6 x 2.5 cm. Distal: 4.8 x 4.6 cm. PSV: 101 cm/s. The measurements of the common iliac arteries in maximum AP and TRV dimensions are as follows: Right Common Iliac Artery: 2.2 x 2.2 cm. Left Common Iliac Artery: 2.5 x 2.4 cm. US/US abdominal aortic aneurysm IMPRESSION: Fusiform infrarenal abdominal aortic aneurysm measuring 4.8 x 4.6 cm, previously measuring 4.3 x 4.[address]
== END 2024-01-18 07:52 | disposition home or self-care (01) ==
LOC: HO.US 07:51
PROVIDERS: Visit Provider Surgery Vascular Surgery
DX: I71.43 Infrarenal abdominal aortic aneurysm, without rupture (principal)
CPT/HCPCS: 76706